=== PATIENT | male | born 1940 | race Caucasian/White ===

== ENCOUNTER 2023-10-05 09:41 | Outpatient (RCR) | payer MEDICARE, OTHER, SELFPAY | END 2023-10-05 23:59 | disposition home or self-care (01) | LOC: RPT 09:41 | PROVIDERS: ATTENDING PHYSICIAN Psychiatry & Neurology Vascular Neurology; FAMILY PHYSICIAN Internal Medicine | DX: R42 Dizziness and giddiness (principal); Z73.6 Limitation of activities due to disability; Z86.73 Personal history of transient ischemic attack (TIA), and cerebral infarction without residual deficits | CPT/HCPCS: 97110; 97162 ==

== ENCOUNTER 2023-11-11 11:57 | Outpatient (RCR) | payer MEDICARE, OTHER, SELFPAY | END 2023-11-12 07:27 | disposition home or self-care (01) | LOC: RPT 11:57 | PROVIDERS: ATTENDING PHYSICIAN Psychiatry & Neurology Vascular Neurology; FAMILY PHYSICIAN Internal Medicine | DX: R42 Dizziness and giddiness (principal); G45.9 Transient cerebral ischemic attack, unspecified; Z73.6 Limitation of activities due to disability; Z86.73 Personal history of transient ischemic attack (TIA), and cerebral infarction without residual deficits | CPT/HCPCS: 97110; 97112; 97140 ==

== ENCOUNTER 2025-03-22 15:48 | Emergency (ER) | payer MEDICARE, OTHER, SELFPAY ==
[2025-03-22 15:53] VITALS: BP 200/75
[2025-03-22 15:56] VITALS: BP 202/87
[2025-03-22 16:29] LABS: Hematocrit 48.3 % (39.0-52.0); Hemoglobin 15.9 g/dL (13.0-18.0); Mean Corp Hgb Conc. 32.9 g/dL (33.0-37.0); Mean Corpuscular Volume 93.8 fL (80.0-94.0); Nucleated Red Blood Cells % 0 % (-); Platelet Count 154 10^3/uL (130-400); Red Cell Dist. Width 13.0 % (11.5-14.5)
[2025-03-22 16:38] LABS: ALT (SGPT) 36 U/L (0-50); AST (SGOT) 28 U/L (17-59); Albumin 4.8 g/dl (3.5-5.0); Alkaline Phosphatase 96 U/L (38-126); Blood Urea Nitrogen 19 mg/dl (9-20); Calcium 9.9 mg/dl (8.4-10.2); Carbon Dioxide 31 mmol/L (22-30); Chloride 100 mmol/L (98-107); Glucose 184 mg/dl (70-99); Potassium 4.3 mmol/L (3.5-5.1); Sodium 138 mmol/L (135-145); Total Protein 7.3 g/dl (6.3-8.2); eGFR > 60.00
[2025-03-22 19:18] VITALS: BP 162/91
[2025-03-22 20:00] VITALS: BP 140/91
[2025-03-22 21:12] VITALS: BP 145/56
--- NOTE | 2025-03-22 21:52 | ED.GENMED ---
History of Present Illness
General
Chief Complaint: Change in Mental Status
Source: patient and spouse
Time Seen by Provider: 03/22/25 19:07
History of Present Illness
History of Present Illness:
Note:
CHIEF COMPLAINT(S)
Memory loss episodes.
HISTORY OF PRESENT ILLNESS
The patient is an 84-year-old male with a significant cardiac history, including a right bundle branch block and a past transcatheter aortic valve replacement (TAVR) procedure two and a half years ago. During the TAVR, an irregularity on the left
side was observed, and subsequently, a pacemaker was implanted after an episode of cardiac arrest. The patient has a history of episodes that resemble transient ischemic attacks (TIAs), marked by temporary memory loss but without lasting
neurological deficits. During a recent episode, following a heavy workout at the gym, the patient experienced memory difficulties such as inability to recall personal information like his home address, similar to previous TIA episodes. The event
lasted a couple of hours, during which speech, motor function, and ability to perform tasks like driving were unaffected. The patient reports he was previously prescribed apixaban (Eliquis) and clopidogrel (Plavix) following a TIA, as per his family
doctors advice. Additional medications include atorvastatin, prednisone for myalgia, and potassium citrate. The patient had recently begun using 5-fluorouracil cream for actinic keratoses and is managing a developing chalazion with prescribed
ophthalmic drops.
PAST MEDICAL AND SURGICAL HISTORY
History of TAVR procedure, pacemaker implantation, TIAs, and previous colon section surgery.
AFIB
CHRONIC MEDICAL CONDITIONS SIGNIFICANTLY AFFECTING CARE
Presence of right bundle branch block and history of cardiac arrest necessitating a pacemaker.
SOCIAL DETERMINANTS AFFECTING HEALTH
Patient reported financial considerations regarding medications, referencing a study on apixaban compared to combined treatment with a Watchman device.
MEDICATIONS
- Apixaban (Eliquis)
- Clopidogrel (Plavix)
- Atorvastatin
- Prednisone
- Famotidine (Pepcid)
- Potassium citrate
REVIEW OF SYSTEMS
- Neurological: Memory loss following physical exertion, episode resolved spontaneously.
- Cardiovascular: Pacemaker-dependent with noted prior right bundle branch block.
- Dermatological: Using 5-fluorouracil for actinic keratoses; history of squamous cell carcinoma.
- Ophthalmic: Managing newly developed chalazion with prescribed medication.
PHYSICAL EXAM
General: Alert, cooperative, no acute distress.
Skin: Warm, dry. Presence of actinic keratoses.
Head: Normocephalic, atraumatic.
Neck: Supple, trachea midline.
Eyes, Ears, Nose, Mouth and Throat: Oral mucosa moist. Eye muscle function intact.
Cardiovascular: Regular heart rate, no murmurs. Good peripheral perfusion.
Respiratory: Non-labored breathing.
Gastrointestinal: Abdomen nondistended.
Musculoskeletal: Normal range of motion and strength.
Neurological: Alert and oriented to person, place, time, and situation, cranial nerves intact, no pronator drift, normal [id number] test, normal strength bilaterally.
Psychiatric: Appropriate mood and affect.
PLAN
1. Review past medical records and imaging to assess the need for further investigation into the cause of memory loss events.
2. Discuss the utility of ongoing anticoagulation with apixaban and clopidogrel in light of current symptoms and history.
3. Consider additional diagnostic imaging such as a carotid ultrasound to rule out carotid artery disease.
4. Close outpatient follow-up to monitor for recurrence of symptoms and adjust treatment plan as needed.
5. Evaluate the potential need and indication for a Watchman device pending further investigation results and symptom management.
DIFFERENTIAL DIAGNOSIS
The Differential Diagnosis includes, in no particular order and is not limited to:
1. Transient Ischemic Attack (TIA)
2. Stroke
3. Transient Global Amnesia (TGA)
4. Medication-induced cognitive dysfunction
5. Dementia
6. Complex partial seizure
7. Cardiac arrhythmia induced cerebral hypoperfusion.
8. Carotid artery stenosis
9. Neurovascular compromise
10. Stress-related cognitive dysfunction
Disposition:
SUMMARY OF ENCOUNTER
An 84-year-old male presented with a brief episode of memory deficit that resolved. The patient was temporarily unable to recall certain information, such as the current president or his medications, despite being typically sharp. His vital signs
showed elevated blood pressure on arrival, which improved without intervention. The patient is currently on apixaban and clopidogrel. Evaluation included a CBC and CMP, both of which returned normal results. A plain head CT indicated no acute
intracranial abnormality. A CTA and CT perfusion of the head and neck ruled out vascular occlusion, aneurysm, or dissection. Neurology was consulted and noted the openness of his vasculature and suggested that it is reasonable for discharge as the
patient is already on appropriate anticoagulant therapy.
DISPOSITION
Discharge
ASSESSMENT
Memory loss episode possibly transient ischemic attack (TIA) or transient global amnesia (TGA).
PLAN
Discharge with advice for outpatient follow-up to monitor for possible recurrence of symptoms. Decision to discharge was made in agreement with the patient and his family, taking into consideration the resolved symptoms and normal imaging findings.
INDEPENDENT REVIEW OF LABS AND INTERPRETATION OF TESTS
- My independent review of CBC is normal.
- My independent review of CMP is normal.
- My independent interpretation of the head CT shows no acute intracranial abnormality.
- My independent interpretation of the CTA and CT perfusion of the head and neck shows no vascular occlusion, aneurysm, or dissection.
PATIENT EDUCATION AND COUNSELING
Discussed the possibility of recurrence of memory deficit episodes and instructed on the importance of prompt medical attention if symptoms reappear.
FOLLOW-UP INSTRUCTIONS
Please call the patients primary care physician to schedule a follow-up visit to discuss further investigation and management.
MEDICATION RECONCILIATION
- Apixaban
- Clopidogrel
MEDICAL DECISION MAKING
- Complexity of Data Reviewed: Chronic conditions affecting care include history of transient ischemic attacks (TIA), right bundle branch block, transcatheter aortic valve replacement (TAVR), pacemaker implantation, and previous colon surgery. DDx
includes transient ischemic attack (TIA), stroke, transient global amnesia (TGA), medication-induced cognitive dysfunction, dementia, complex partial seizure, cardiac arrhythmia-induced cerebral hypoperfusion, carotid artery stenosis, neurovascular
compromise, and stress-related cognitive dysfunction.
- Data:
Category 1:
- My independent interpretation of the head CT shows no acute intracranial abnormality.
- My independent interpretation of the CTA and CT perfusion of the head and neck, which shows no vascular occlusion, aneurysm, or dissection.
Category 3:
- Discussion of management with a neurologist, who agreed with the decision for discharge considering the patients open vasculature and current medication regimen.
- Risk:
Consideration of Admission/Observation: Escalation of care including admission/observation was considered given the complexity and risk of the patients presenting complaint, exam findings, and/or their underlying comorbidities. However, ultimately,
I feel the patient is safe for outpatient management with close follow-up. Reasoning: Work-up reassuring, does not reveal any acute life/organ-threatening processes, patients symptoms well controlled upon reevaluation, reexamination is reassuring,
vitals are stable, patient agreeable with discharge, reliable for follow-up.
DIAGNOSIS
- Transient Ischemic Attack (TIA) (G45.9)
- Transient Global Amnesia (TGA) (G45.4)
Past History
Past History
ED Past Medical History: Cancer (prostate), GERD, HTN, Hypercholesterolemia, NIDDM and Other (psoriasis, epistaxis)
ED Past Surgical History: Bowel resection (2017) and Cardiac (TAVR 08/2022)
Social History
Tobacco: Non-smoker
Alcohol: None
Drug: None
Personal:
Living: with family
Family History
Family History: Other (reviewed and non-contributory)
Phy Exam
Physical Exam
Physical Exam:
.
Course
Orders/Labs/Results
Orders:
Orders
03/22/25 15:[address] [CT Head W/o Iv Contrast] Urgent
Comment: hx of stroke
Reason For Exam: change in mental status
03/22/25 16:02
CMP [Comprehensive Metabolic Panel] Urgent
Complete Blood Count/With Diff Urgent
03/22/25 19:59
CT Head & Neck Angio W/wo IV Urgent
Comment:
Reason For Exam: memory difficulty, possible CVA/TIA
Abnormal Lab Results
03/22/25
16:02
MCHC 32.9 L g/dL
(33.0-37.0)
Carbon Dioxide 31 H mmol/L
(22-30)
Glucose 184 H mg/dl
(70-99)
03/22/25 16:02
03/22/25 16:02
Vital Signs
Initial and Last Documented VS:
Initial Vital Signs
Temp Pulse Resp BP Pulse Ox
97.6 F 72 20 200/75 98
03/22/25 15:53 03/22/25 15:53 03/22/25 15:53 03/22/25 15:53 03/22/25 15:53
Last Documented Vital Signs
Temp Pulse Resp BP Pulse Ox
97.6 F 85 15 145/56 95
03/22/25 15:53 03/22/25 21:30 03/22/25 21:30 03/22/25 21:12 03/22/25 21:15
*Pulse Oximetry
SaO2: 95
Oxygen Mode of Delivery: Room air
Patient hypoxic: no
*Critical Care Note
Total Time (30-74mins, 75-104mins- exclusive of procedures): Not Applicable
ED Attending Note
-
Portions of this chart may have been created with voice recognition software.� Occasional wrong word or��sound alike� substitutions may have occurred due to the inherent limitations of voice recognition software.
Discharge Plan
Departure
Patient Disposition: Home (Routine Discharge)
Date of Disposition: 03/22/25
Time of Disposition: 21:55
Patient with high blood pressure during this ER visit?: Yes
Discharge Problem:
Amnesia resolved
Instructions: BLOOD PRESSURE, Altered Mental Status (DC)
Prescriptions:
No Action
aspirin 81 MG tablet,delayed release (DR/EC)
81 mg PO HS
potassium citrate 10 MEQ tablet extended release
20 meq PO BID
cholecalciferol (vitamin D3) 2,000 UNITS tablet
2,000 units PO DAILY
atorvastatin 20 MG tablet
20 mg PO DAILY
omeprazole 40 MG capsule,delayed release(DR/EC)
40 mg PO MOWEFR
famotidine [Pepcid] 20 mg Tablet
20 mg PO HS
Benefiber Clear SF (dextrin) 3 gram/3.5 gram Powder In Packet
3 g PO DAILY
Eliquis 5 mg Tablet
5 mg PO BID
cyanocobalamin (vitamin B-12) 1,000 mcg Tablet
1,000 mcg PO DAILY Qty: 30 0RF
Referrals:
Edy Arzate MD [Family Provider, Internal Medicine]
Activity Restrictions/Additional Instructions:
Please see your primary doctor in the next 48 hours for follow-up and reevaluation. Further follow-up with your neurologist may be necessary as well. Continue your current medications. Return immediately for speech changes, memory loss, vision
changes, motor weakness, numbness, tingling, sensory changes or any other concerns.
Interventions
Interventions:
*Risk Screen - Suicide Last Done: 03/22/25 15:53
ED- Pulmonary Assessment Last Done: 03/22/25 21:46
ED- Neurological Assessment Last Done: 03/22/25 21:46
ED- Cardiac Assessment Last Done: 03/22/25 21:46
Discharge Date and Time
Print Language: TAJIK
[2025-03-22 21:54] VITALS: BMI 28.9
[2025-03-22 22:00] VITALS: BP 134/92
== END 2025-03-22 22:41 | disposition home or self-care (01) ==
LOC: EMR 15:48
PROVIDERS: Emergency Medicine; EMERGENCY PHYSICIAN Emergency Medicine; FAMILY PHYSICIAN Internal Medicine
DX: R41.3 Other amnesia (principal); E11.9 Type 2 diabetes mellitus without complications; I48.91 Unspecified atrial fibrillation; I10 Essential (primary) hypertension; E78.00 Pure hypercholesterolemia, unspecified; L40.9 Psoriasis, unspecified; Z79.01 Long term (current) use of anticoagulants; Z79.02 Long term (current) use of antithrombotics/antiplatelets; Z79.82 Long term (current) use of aspirin; Z95.2 Presence of prosthetic heart valve; Z86.74 Personal history of sudden cardiac arrest; Z95.0 Presence of cardiac pacemaker; Z86.73 Personal history of transient ischemic attack (TIA), and cerebral infarction without residual deficits; Z85.828 Personal history of other malignant neoplasm of skin; Z85.46 Personal history of malignant neoplasm of prostate
CPT/HCPCS: 99284; 70450; 70496; 70498; 80053; 85025; Q9967